=== PATIENT | male | born 1955 | race Caucasian/White ===

== ENCOUNTER 2021-08-01 14:54 | Inpatient (IN) ==
--- NOTE | 2021-08-01 15:30 | Emergency Department Note ---
Skin/Abscess/FB HPI <Vazquez Pierce PA-C - Last Filed: 08/01/21 20:48> General Chief complaint: Skin/Abscess/Rash Stated complaint: Left Leg Cellulitis Time Seen by Provider: 08/01/21 14:55 Source: patient Mode of arrival: ambulatory Limitations: no limitations History of Present Illness HPI Narrative: Narrative: 65-year-old male with a history of chronic idiopathic thrombocytopenia, hype rtension and history of endocarditis presents the ER to be evaluated for cellulitis of his left lower extremity. He has had Rocephin, Keflex and doxycycline which he has failed outpatient. He had a log hit his ross on 23 July and noticed a little bit redness and irritation that blossomed. He was seen in the urgent care on the and then by his primary care provider on the . He received Rocephin and Keflex from the urgent care. His primary care took him off Keflex and started him on doxycycline. It has been increasing in redness and pain since then. He had an outpatient ultrasound which showed no DVT but did show a significant fluid-filled pocket on his anterior ross which was 5 cm in diameter which is likely a hematoma according to the radiologist. The patient denies fever, shaking chills, nausea, vomiting, chest pain, chest pressure, shortness of breath or numbness or tingling in his foot. He states he is able to ambulate on it although is painful. And he does have normal sensation throughout both lower extremities. The only medication he takes is lisinopril for his blood pressure and Ambien as a sleep aid. He denies any other acute complaints at this time. Patient had recent inguinal hernia repair in April performed by Dr. Billy he ended up needing to receive platelets due to bleeding because of his thrombocytopenia. Patient is still an active smoker. Related Data Home Medications Medication Instructions Recorded Confirmed ascorbic acid (vitamin C) 1,000 mg 1,000 mg PO QAM 03/27/21 08/01/21 tablet lisinopril 20 mg tablet 20 mg PO QAM 03/27/21 08/01/21 melatonin 10 mg capsule 10 mg PO HS 03/27/21 08/01/21 Previous Rx's Medication Instructions Recorded doxycycline hyclate 100 mg capsule 100 mg PO BID #20 cap 07/28/21 oxycodone-acetaminophen 10 mg-325 1 tab PO TID PRN #30 tab 07/28/21 mg tablet zolpidem 10 mg tablet 10 mg PO QHS #30 tab 07/28/21 Allergies Allergy/AdvReac Type Severity Reaction Status Date / Time No Known Drug Allergies Allergy Verified 07/28/21 14:31 Review of Systems <Vazquez Pierce PA-C - Last Filed: 08/01/21 20:48> ROS ROS Narrative: Narrative: All systems ED: reviewed and negative except as stated. PFSH <Vazquez Pierce PA-C - Last Filed: 08/01/21 20:48> Narrative Patient History Narrative: Narrative: Medical/Surgical/Family History All Active Problems (Updated 08/01/21 @ 18:16 by Shantal Billy MD) Cellulitis of left lower extremity (Acute) Hematoma of left lower extremity (Acute) Cellulitis (Acute) Cellulitis (Acute) HIV screening declined (Acute) Screening for hepatitis C declined (Acute) Screening for malignant neoplasm of prostate (Acute) Encounter for colorectal cancer screening (Acute) Medicare welcome visit (Acute) Incarcerated right inguinal hernia (Acute) Insomnia (Acute) Tobacco use disorder, mild, abuse (Acute) Right inguinal hernia (Acute) Endocarditis (Chronic) Right inguinal hernia (Chronic) Chronic idiopathic thrombocytopenia (Chronic) Hypertension (Chronic) Medical History Cellulitis Chronic idiopathic thrombocytopenia Encounter for colorectal cancer screening Endocarditis HIV screening declined Hypertension Insomnia Medicare welcome visit Right inguinal hernia Right inguinal hernia Screening for hepatitis C declined Screening for malignant neoplasm of prostate Tobacco use disorder, mild, abuse Surgical History History of foot surgery Left Plantar Neurectomy History of right inguinal hernia repair 04/02/2021 History of total cystectomy Right Wrist Ganglion Family History Other Breast cancer COPD (chronic obstructive pulmonary disease) Hypertension Prostate cancer Throat cancer Social History Smoking Status: Current every day smoker Alcohol Intake Frequency: does not drink Substance Use: marijuana Exam <Vazquez Pierce PA-C - Last Filed: 08/01/21 20:48> Narrative Narrative: Narrative: Gen: No acute distress CVS: +S1/S2, No murmurs or gallops. Radial pulses 2+ and equal bilat. No swelling RESP: Unlabored respiratory effort . Clear to auscultation bilaterally (CTAB). No noted wheezes rales or ronchi. GI: Nontender/Nondistended (NTND), No focal tenderness MSK: Diffuse erythema and swelling of the left lower extremity, when visualized on ultrasound there is a large 5 cm hematoma pocket on the anterior ross. There is no exudate or drainage or evidence of purulence. There is a minor scab on his anterior ross from where he collided with a log. Cap refill is less than 2, normal sensation throughout the lower extremity, no evidence of compartment syndrome. DP is palpable through the edema. Skin: Warm, Dry . No rashes or lesions . Cap refill less than 2. Psych: Awake, Alert, & Oriented (AAO) x3. Appropriate mood and affect . General Limitations: no limitations Course <Vazquez Pierce PA-C - Last Filed: 08/01/21 20:48> Vital Signs Vital signs: Vital Signs Temperature 97.7 F 08/01/21 14:55 Pulse Rate 75 08/01/21 14:55 Respiratory Rate 18 08/01/21 14:55 Blood Pressure 119/76 08/01/21 14:55 Pulse Oximetry (%) 99 08/01/21 14:55 Temperature 98.1 F 08/02/21 11:16 Pulse Rate 79 08/02/21 11:16 Respiratory Rate 18 08/02/21 11:16 Blood Pressure 99/63 08/02/21 11:16 Pulse Oximetry (%) 97 08/02/21 11:16 MDM <Vazquez Pierce PA-C - Last Filed: 08/01/21 20:48> MDM Narrative Medical decision making narrative: Narrative: Patient has history of thrombocytopenia and bleeding secondary to surgery. He had a recent inguinal repair where he needed a transfusion of platelets. He does have significant cellulitis. His lactate is 1. He is afebrile and has normal vital signs. Blood cultures will be obtained as well as a CBC, CMP. Dr. Sahu was consulted but he is out of town until Wednesday. Dr Billy General Surgeon will be consulted. CBC: Platelet count 64 otherwise unremarkable CMP: Creatinine of 1.3 otherwise unremarkable Blood cultures: Pending Dr Billy: Admit to to him, start of vanomycin and zosyn start pain protocol Dr. Billy will be in to see the patient. He was started on morphine as well as vancomycin and Zosyn. He will be admitted and evaluated further. Lab Data Result diagrams: 08/01/21 15:14 08/01/21 15:14 Labs: Lab Results 08/01/21 08/01/21 Range/Units 15:14 15:14 WBC 9.9 (4.5-11.0) K/mcL RBC 4.94 (4.63-6.08) M/mcL Hgb 14.5 (13.7-17.5) g/dL Hct 42.6 (40.1-51.0) % MCV 86.2 (80.0-100.0) fL MCH 29.4 (26.0-34.0) pg MCHC 34.0 (31.0-36.0) g/dL RDW 12.7 (11.5-14.5) % Plt Count 64 L (140-440) K/mcL MPV 10.7 H (7.4-10.4) fL Neut % (Auto) 70.6 (38.0-78.0) % Lymph % (Auto) 14.5 L (15.5-49.0) % [place] % (Auto) 8.6 (1.0-12.0) % Eos % (Auto) 5.3 (0.0-7.0) % Baso % (Auto) 1.0 (0.0-2.0) % Lymph # (Auto) 1.43 L (1.50-4.80) K/mcL [place] # (Auto) 0.85 (0.10-0.90) K/mcL Eos # (Auto) 0.52 (0.00-0.70) K/mcL Baso # (Auto) 0.10 (0.00-0.30) K/mcL Absolute Neutrophils 6.98 (1.80-8.00) K/mcL Sodium 134 (133-145) mmol/L Potassium 4.5 (3.3-5.1) mmol/L Chloride 99 (96-108) mmol/L Carbon Dioxide 25 (22-30) mmol/L Anion Gap 10.0 (8.0-16.0) BUN 23 (8-23) mg/dL Creatinine 1.3 H (0.7-1.2) mg/dL GFR Calculation 57 Glucose 91 (70-105) mg/dL Calcium 8.6 (8.6-10.4) mg/dL Total Bilirubin 0.5 (0.1-1.0) mg/dL AST 15 (<40) U/L ALT 8 (<40) U/L Alkaline Phosphatase 66 (39-117) U/L Total Protein 6.9 (5.9-8.4) gm/dL Albumin 3.7 (3.2-5.2) gm/dL Globulin 3.2 (2.2-3.7) gm/dL Albumin/Globulin Ratio 1.2 (1.0-2.3) ED POC Tests ED POC Tests: [place] - SARS Antigen Negative Discharge Plan Patient/Caregiver Discharge Instructions Pt seen by PACKAGE LIFT OPERATOR/PA only: Yes Clinical Impression: Cellulitis Qualifiers: Site of cellulitis: extremity Site of cellulitis of extremity: lower extremity Laterality: left Qualified Code(s): L03.116 - Cellulitis of left lower limb Patient Disposition: Xfer As Inpt ([facility]) Discharge Date/Time: 08/01/21 17:51 Discharge Location: [facility]
[2021-08-01] MEDS ORDERED: PIPERACILLIN SODIUM/TAZOBACTAM 4.5 GM in DEXTROSE 5% IN WATER 50 ML IV ONE (15:46)
[2021-08-01] MEDS ORDERED: VANCOMYCIN PER PHARMACY IV ONE (15:46)
[2021-08-01] MEDS ORDERED: morphine 4 MG/ML VIAL IV PRN ×2 (15:46→17:14)
[2021-08-01 15:51] LABS: Eosinophils # (Auto) 0.52 K/mcL (0.00-0.70); Eosinophils % (Auto) 5.3 % (0.0-7.0); Hematocrit 42.6 % (40.1-51.0); Hemoglobin 14.5 g/dL (13.7-17.5); Lymphocytes # (Auto) 1.43 K/mcL (1.50-4.80); Lymphocytes % (Auto) 14.5 % (15.5-49.0); Mean Cell Volume 86.2 fL (80.0-100.0); Mean Platelet Volume 10.7 fL (7.4-10.4); Monocytes # (Auto) 0.85 K/mcL (0.10-0.90); Monocytes % (Auto) 8.6 % (1.0-12.0); Neutrophils % (Auto) 70.6 % (38.0-78.0); Platelet Count 64 K/mcL (140-440); RBC 4.94 M/mcL (4.63-6.08); Red Cell Distribution Width 12.7 % (11.5-14.5); WBC 9.9 K/mcL (4.5-11.0)
[2021-08-01] MEDS ORDERED: VANCOMYCIN 1,500 MG in 0.9 % SODIUM CHLORIDE 500 ML IV ONE (16:00)
[2021-08-01 16:11] LABS: ALT/SGPT 8 U/L (<40); AST/SGOT 15 U/L (<40); Albumin 3.7 gm/dL (3.2-5.2); Albumin/Globulin Ratio 1.2 (1.0-2.3); Alkaline Phosphatase 66 U/L (39-117); Bilirubin,Total 0.5 mg/dL (0.1-1.0); Blood Urea Nitrogen 23 mg/dL (8-23); Calcium 8.6 mg/dL (8.6-10.4); Carbon Dioxide 25 mmol/L (22-30); Chloride 99 mmol/L (96-108); Globulin 3.2 gm/dL (2.2-3.7); Glomerular Filtration Rate 57; Glucose 91 mg/dL (70-105)
[2021-08-01] MEDS ORDERED: ACETAMINOPHEN 325 MG TABLET PO PRN (17:14)
[2021-08-01] MEDS ORDERED: ONDANSETRON 4 MG/2 ML VIAL IV PRN (17:14)
--- NOTE | 2021-08-01 17:47 | General Surg History&Physical ---
HPI History of Present Illness Patient information: Note initiated : 08/01/21 at 5:45 pm Service Date, if different from initiated Date: [] Patient: Mo Hickman 65 y/o M admitted on for Left Leg Cellulitis. Chief Complaint: [] Chief complaint: Infected hematoma with cellulitis History of present illness: Mr. Hickman is a 65 year old MWho sustained an injury to his left leg on 23 July 2021. He was lifting wood and one of the logs fell on his left mid ross. Initially he had a bruise and superficial abrasion. It increased in size and developed more redness so he was seen in urgent care on 26 July 2021. They ga ve him Rocephin and started him on Keflex. He followed up with his primary physician on 28 July who switched to Keflex to doxycycline. He had an ultrasound which ruled out DVT and showed a suspected superficial hematoma in the deep subcutaneous tissue. The patient states that over the past 4 days the redness and swelling has increased though he has not had pain. He is seen in the emergency room where he has an obvious fluctuant mass of the anterior ross with surrounding cellulitis and some resolving ecchymoses. He also has edema of his foot. Patient is admitted and will be started on antibiotics IV. I will aspirate the mass tomorrow and get cultures. Antibiotics will be continued IV until cultures return. It is highly possible that the increased size of the swelling is liquefied hematoma which is made worse by the fact that he has chronic thrombocytopenia. Constitutional Constitutional: Present chills; Absent lethargy, malaise or night sweats EENT Eyes: Absent loss of vision Ears: Absent decreased hearing Nose, mouth and throat: Absent abnormal hearing, headache(s), neck mass, sore throat or throat swelling Cardiovascular Cardiovascular: Present leg edema and pedal edema; Absent chest pain with activity, claudication, dyspnea on exertion, palpatations, rapid heart rate or syncope Respiratory Respiratory: Absent cough or dyspnea on exertion Gastrointestinal Gastrointestinal: Absent abdominal pain, cramping, loose stools or melena Genitourinary Genitourinary: nocturia, urinary frequency and urinary urgency Musculoskeletal Musculoskeletal: Present abnormal gait, joint swelling, myalgias and radiating pain into limb Integumentary Integumentary: Present erythema, swelling and unusual bruising Neurological Neurological: Absent dizziness, memory loss, restless legs or syncope Psychiatric Psychiatric: Absent depression or mood swings Hematologic/Lymphatic Hematologic/Lymphatic: Present easy bleeding and easy bruising; Absent lymphadenopathy Allergic/Immunologic Allergic/Immunologic: Absent tongue swelling, throat swelling, uticaria, wheezing or lip swelling PFSH PFSH All Active Problems (Updated 08/01/21 @ 18:16 by Shantal Billy MD) Cellulitis of left lower extremity (Acute) Hematoma of left lower extremity (Acute) Cellulitis (Acute) Cellulitis (Acute) HIV screening declined (Acute) Screening for hepatitis C declined (Acute) Screening for malignant neoplasm of prostate (Acute) Encounter for colorectal cancer screening (Acute) Medicare welcome visit (Acute) Incarcerated right inguinal hernia (Acute) Insomnia (Acute) Tobacco use disorder, mild, abuse (Acute) Right inguinal hernia (Acute) Endocarditis (Chronic) Right inguinal hernia (Chronic) Chronic idiopathic thrombocytopenia (Chronic) Hypertension (Chronic) Medical History Cellulitis Chronic idiopathic thrombocytopenia Encounter for colorectal cancer screening Endocarditis HIV screening declined Hypertension Insomnia Medicare welcome visit Right inguinal hernia Right inguinal hernia Screening for hepatitis C declined Screening for malignant neoplasm of prostate Tobacco use disorder, mild, abuse Surgical History History of foot surgery Left Plantar Neurectomy History of right inguinal hernia repair 04/02/2021 History of total cystectomy Right Wrist Ganglion Family History Other Breast cancer COPD (chronic obstructive pulmonary disease) Hypertension Prostate cancer Throat cancer Social History marital status: occupational status: retired smoking status: Current every day smoker alcohol intake frequency: does not drink substance use type: marijuana MEDS/ALLERGIES Home Medications and Allergies Home Medications Medication Instructions Recorded Confirmed Type ascorbic acid (vitamin C) 1,000 mg 1,000 mg PO QAM 03/27/21 07/28/21 History tablet lisinopril 20 mg tablet 20 mg PO QAM 03/27/21 07/28/21 History melatonin 10 mg capsule 10 mg PO HS 03/27/21 07/28/21 History turmeric 400 mg capsule 400 mg PO QAM 03/27/21 07/28/21 History doxycycline hyclate 100 mg capsule 100 mg PO BID #20 cap 07/28/21 07/28/21 Rx oxycodone-acetaminophen 10 mg-325 1 tab PO TID PRN #30 tab 07/28/21 07/28/21 Rx mg tablet zolpidem 10 mg tablet 10 mg PO QHS #30 tab 07/28/21 07/28/21 Rx Allergies Allergy/AdvReac Type Severity Reaction Status Date / Time No Known Drug Allergies Allergy Verified 07/28/21 14:31 Physical Examination Vital Signs Vital signs: Temp Pulse Resp BP Pulse Ox 97.7 F 67 16 105/68 96 08/01/21 14:55 08/01/21 17:30 08/01/21 17:00 08/01/21 17:30 08/01/21 17:30 General physical appearance General physical exam: well developed, well nourished, no distress and moderate pain (Left lower extremity) Eyes Eye exam: PERRL and normal ocular movement ENT ENT exam: normal mucosa, no hearing loss and no congestion Head Head exam IM: Present atraumatic, normal inspection and normocephalic Neck Neck exam: no masses, no bruits, trachea midline, no lymphadenopathy and no venous distension Cardiovascular Cardiovascular exam IM: Present normal rate and rhythm, RRR, +S1 and +S2; Absent JVD Respiratory Respiratory exam: normal expansion, normal respiratory effort and clear to auscultation Abdomen Abdomen: Present soft, non tender and bowel sounds; Absent organomegaly or guarding Integumentary Integumentary: Present no rash, no growths, no abnormal pigmentation and other (Fluctuant, mildly tender, erythematous bulbous lesion anterior mid ross with surrounding cellulitis extending down to the ankle. 3+ nonpitting edema of the leg below the knee extending to the foot) Neurologic Neurologic: Present normal coordination and normal sensation Musculoskeletal Musculoskeletal: Present normal gait and normal posture Psychiatric Psychiatric: Present oriented to time, oriented to person, oriented to place, speech is normal and memory intact Results Labs Result diagrams: 08/01/21 15:14 08/01/21 15:14 Labs: Abnormal lab results 08/01/21 08/01/21 Range/Units 15:14 15:14 Plt Count 64 L (140-440) K/mcL MPV 10.7 H (7.4-10.4) fL Lymph % (Auto) 14.5 L (15.5-49.0) % Lymph # (Auto) 1.43 L (1.50-4.80) K/mcL Creatinine 1.3 H (0.7-1.2) mg/dL Diabetes panel 08/01/21 Range/Units 15:14 Sodium 134 (133-145) mmol/L Potassium 4.5 (3.3-5.1) mmol/L Chloride 99 (96-108) mmol/L Carbon Dioxide 25 (22-30) mmol/L BUN 23 (8-23) mg/dL Creatinine 1.3 H (0.7-1.2) mg/dL Glucose 91 (70-105) mg/dL Calcium 8.6 (8.6-10.4) mg/dL AST 15 (<40) U/L ALT 8 (<40) U/L Alkaline Phosphatase 66 (39-117) U/L Total Protein 6.9 (5.9-8.4) gm/dL Albumin 3.7 (3.2-5.2) gm/dL Calcium panel 08/01/21 Range/Units 15:14 Calcium 8.6 (8.6-10.4) mg/dL Albumin 3.7 (3.2-5.2) gm/dL Pituitary panel 08/01/21 Range/Units 15:14 Sodium 134 (133-145) mmol/L Potassium 4.5 (3.3-5.1) mmol/L Chloride 99 (96-108) mmol/L Carbon Dioxide 25 (22-30) mmol/L BUN 23 (8-23) mg/dL Creatinine 1.3 H (0.7-1.2) mg/dL Glucose 91 (70-105) mg/dL Calcium 8.6 (8.6-10.4) mg/dL Adrenal panel 08/01/21 Range/Units 15:14 Sodium 134 (133-145) mmol/L Potassium 4.5 (3.3-5.1) mmol/L Chloride 99 (96-108) mmol/L Carbon Dioxide 25 (22-30) mmol/L BUN 23 (8-23) mg/dL Creatinine 1.3 H (0.7-1.2) mg/dL Glucose 91 (70-105) mg/dL Calcium 8.6 (8.6-10.4) mg/dL Total Bilirubin 0.5 (0.1-1.0) mg/dL AST 15 (<40) U/L ALT 8 (<40) U/L Alkaline Phosphatase 66 (39-117) U/L Total Protein 6.9 (5.9-8.4) gm/dL Albumin 3.7 (3.2-5.2) gm/dL All other labs normal. A/P Assessment and plan (1) Hematoma of left lower extremity: Status: Acute (2) Cellulitis of left lower extremity: Status: Acute (3) Chronic idiopathic thrombocytopenia: Status: Chronic (4) Hypertension: Status: Chronic Narrative A/P Narrative: Zosyn 3.375 g IV every 6 hours elevate left lower extremity Aspirate hematoma tomorrow with cultures Vancomycin 1 g IV every 12 hours Zosyn Time Spent With Patient Time: Total time spent is greater than 50% in coordination of care (as documented) at patient's floor/unit and/or counseling patient:
[2021-08-01] MEDS ORDERED: oxyCODONE HCL 5 MG TABLET PO PRN (18:20)
[2021-08-01] MEDS: 0.9 % SODIUM CHLORIDE 10 ML SYRINGE IV SCH (20:23)
[2021-08-01] MEDS: SENNOSIDES 1 TABLET PO SCH (20:23)
[2021-08-01] MEDS: DOCUSATE SODIUM 100 MG CAPSULE PO SCH (20:23)
[2021-08-02] MEDS: 0.9 % SODIUM CHLORIDE 10 ML SYRINGE IV SCH ×3 (04:04→20:19)
[2021-08-02] MEDS: DOCUSATE SODIUM 100 MG CAPSULE PO SCH ×2 (09:39→20:20)
[2021-08-02] MEDS ORDERED: VANCOMYCIN PER PHARMACY IV SCH (14:20)
[2021-08-02] MEDS ORDERED: VANCOMYCIN 1,000 MG in 0.9 % SODIUM CHLORIDE 250 ML IV SCH (14:30)
--- NOTE | 2021-08-02 14:39 | General Surgery Progress Note ---
SUBJECTIVE Subjective Patient information: Note initiated : 08/02/21 at 2:38 pm Service Date, if different from initiated Date: [] Patient: Mo Hickman 65 y/o M admitted on 08/01/21 for Left Leg Cellulitis. Chief Complaint: [] Principal diagnosis: hematoma with cellulitis Interval history: Patient has swelling and increased cellulitis of the hematoma of the left leg. The edema of the lower leg and foot appears to be worse. The area is still soft and fluctuant and I discussed the need for an attempt at aspiration. He gives his informed consent. Constitutional Vitals: Vital Signs Temp Pulse Resp BP Pulse Ox 98.1 F 79 18 99/63 97 08/02/21 11:16 08/02/21 11:16 08/02/21 11:16 08/02/21 11:16 08/02/21 11:16 Period Temp Pulse Resp BP Sys/Duke Pulse Ox Last 24 Hr 97.3 F-98.3 F 62-79 16-18 92-120/63-82 95-99 Intake and Output 08/02/21 08/02/21 08/02/21 05:59 13:59 21:59 Intake Total 350 500 Output Total 1225 Balance -875 500 Weight 241 lb 1.6 oz Patient Weight 08/03/21 05:59 Weight 241 lb 1.6 oz Intake & Output: Intake & Output 08/02/21 08/02/21 08/02/21 05:59 13:59 21:59 Intake Total 350 500 Output Total 1225 Balance -875 500 Weight 241 lb 1.6 oz Intake: IV 500 Vancomycin 1,500 mg In Sodium 500 Chloride 0.9% 500 ml @ 333.3 mls/hr IV ONCE ONE Rx#: [id number] Oral 350 Output: Void Amount 1225 Other: Meal Lunch Percent of Meal Consumed 100% Feeding Ability Independent Urine Appearance Clear Urine Color Bright Yellow Neck Neck exam: Present full ROM and normal inspection Respiratory Respiratory exam: Present normal respiratory exam and CTAB Cardiovascular Cardiovascular exam: Present normal rate and rhythm, RRR, +S1 and +S2 GI/Abdominal GI/Abdominal exam: Present normal bowel sounds, soft and mass; Absent distended or tenderness Extremities Exam Extremities exam: Present calf tenderness, tenderness (Diffuse tenderness and swelling of anterior mid calf level. Cellulitis is much worse than at the time of admission.) and neurovascular intact Neurological Exam Neurological exam: Absent motor sensory deficit Psychiatric Psychiatric exam: Present normal affect and normal mood A/P Assessment and plan (1) Hematoma of left lower extremity: Status: Acute (2) Cellulitis of left lower extremity: Status: Acute (3) Chronic idiopathic thrombocytopenia: Status: Chronic Narrative A/P Narrative: The left leg was prepped and draped with ChloraPrep. The anterior aspect of the mass was initially punctured with an 18-gauge needle. Only a small amount of liquefied blood was removed. Another area was anesthetized and a 16-gauge needle was inserted. I was able to remove probably 20 cc of hematoma. Dressing was placed because of continued bleeding. Will reevaluate tomorrow and make decision about open drainage under anesthesia if his inflammation has not improved. Time Spent With Patient Time: Total time spent is greater than 50% in coordination of care (as documented) at patient's floor/unit and/or counseling patient:
[2021-08-02] MEDS: PIPERACILLIN SODIUM/TAZOBACTAM 3.375 GM in DEXTROSE 5% IN WATER 50 ML IV SCH ×2 (15:36→20:19)
[2021-08-02] MEDS: VANCOMYCIN 1,500 MG in 0.9 % SODIUM CHLORIDE 500 ML IV SCH ×2 (16:19→23:47)
[2021-08-02] MEDS: SENNOSIDES 1 TABLET PO SCH (20:20)
[2021-08-03] MEDS: 0.9 % SODIUM CHLORIDE 10 ML SYRINGE IV SCH ×3 (05:48→23:27)
[2021-08-03] MEDS: PIPERACILLIN SODIUM/TAZOBACTAM 3.375 GM in DEXTROSE 5% IN WATER 50 ML IV SCH ×4 (05:48→23:27)
--- NOTE | 2021-08-03 08:33 | General Surgery Progress Note ---
SUBJECTIVE Subjective Patient information: Note initiated : 08/03/21 at 8:30 am Service Date, if different from initiated Date: [] Patient: Mo Hickman 65 y/o M admitted on 08/01/21 for Left Leg Cellulitis. Chief Complaint: [] Interval history: Patient has not had any significant improvement in the inflammatory mass of his left leg. It actually appears to be well larger and more erythematous. He is counseled for drainage of the infected hematoma under MAC later today. Constitutional Vitals: Vital Signs Temp Pulse Resp BP Pulse Ox 97.9 F 66 18 115/76 96 08/03/21 07:44 08/03/21 07:44 08/03/21 07:44 08/03/21 07:44 08/03/21 07:44 Period Temp Pulse Resp BP Sys/Duke Pulse Ox Last 24 Hr 97.7 F-98.7 F 66-79 16-18 99-115/63-76 96-98 Intake and Output 08/02/21 08/03/21 08/03/21 21:59 05:59 13:59 Intake Total 600 960 50 Output Total 625 725 Balance -25 235 50 Weight 239 lb 4.8 oz Intake & Output: Intake & Output 08/02/21 08/03/21 08/03/21 21:59 05:59 13:59 Intake Total 600 960 50 Output Total 625 725 Balance -25 235 50 Weight 239 lb 4.8 oz Intake: IV 600 500 50 Zosyn 3.375 gm In Dextrose 5% 100 50 in Water 50 ml @ 100 mls/hr IV Q6H CHARAN Rx#:[id number] Vancomycin 1,500 mg In Sodium 500 500 Chloride 0.9% 500 ml @ 333.3 mls/hr IV Q12H CHARAN Rx#: [id number] Oral 460 Output: Void Amount 625 725 Other: Urine Appearance Clear Clear Urine Color Bright Yellow Bright Yellow Stool Size Large Stool Color Brown # Bowel Movements 1 A/P Time Spent With Patient Time: Total time spent is greater than 50% in coordination of care (as documented) at patient's floor/unit and/or counseling patient:
[2021-08-03 08:58] LABS: Basophils # (Auto) 0.09 K/mcL (0.00-0.30); Eosinophils # (Auto) 0.38 K/mcL (0.00-0.70); Eosinophils % (Auto) 4.1 % (0.0-7.0); Hematocrit 42.2 % (40.1-51.0); Hemoglobin 14.3 g/dL (13.7-17.5); Lymphocytes # (Auto) 0.78 K/mcL (1.50-4.80); Lymphocytes % (Auto) 8.5 % (15.5-49.0); Mean Cell Volume 85.1 fL (80.0-100.0); Mean Corpuscular HGB Conc 33.9 g/dL (31.0-36.0); Mean Platelet Volume 10.2 fL (7.4-10.4); Monocytes # (Auto) 0.65 K/mcL (0.10-0.90); Monocytes % (Auto) 7.1 % (1.0-12.0); Neutrophils % (Auto) 79.3 % (38.0-78.0); Platelet Count 71 K/mcL (140-440); RBC 4.96 M/mcL (4.63-6.08); Red Cell Distribution Width 12.5 % (11.5-14.5); WBC 9.2 K/mcL (4.5-11.0)
[2021-08-03] MEDS: DOCUSATE SODIUM 100 MG CAPSULE PO SCH ×2 (09:15→20:32)
[2021-08-03] MEDS: VANCOMYCIN 1,500 MG in 0.9 % SODIUM CHLORIDE 500 ML IV SCH ×2 (10:04→10:06)
[2021-08-03] MEDS ORDERED: fentaNYL 100 MCG/2 ML VIAL IV PRN (10:19)
[2021-08-03] MEDS ORDERED: BENZOCAINE/MENTHOL 1 LOZENGE PO PRN (10:19)
[2021-08-03] MEDS ORDERED: HYDROmorphone 0.5 MG/0.5 ML SYRINGE IV PRN (10:19)
[2021-08-03] MEDS ORDERED: NALOXONE HCL 0.4 MG/ML VIAL IV PRN (10:19)
[2021-08-03] MEDS ORDERED: LACTATED RINGERS 250 ML IV PRN (10:19)
[2021-08-03] MEDS ORDERED: METHOCARBAMOL 1,000 MG/10 ML VIAL IV PRN (10:19)
[2021-08-03] MEDS ORDERED: METOPROLOL TARTRATE 5 MG/5 ML VIAL IV PRN (10:19)
[2021-08-03] MEDS ORDERED: IPRATROPIUM/ALBUTEROL 3 ML AMPUL.NEB NEB PRN (10:19)
[2021-08-03] MEDS ORDERED: LABETALOL 5 MG/ML ML IV PRN (10:19)
[2021-08-03] MEDS ORDERED: ACETAMINOPHEN 1,000 MG/100 ML BAG IV ONE (10:19)
[2021-08-03] MEDS ORDERED: FLUMAZENIL 0.1 MG/ML ML IV PRN (10:19)
[2021-08-03] MEDS ORDERED: LACTATED RINGERS 1,000 ML IV SCH (10:30)
[2021-08-03] MEDS ORDERED: DEXAMETHASONE 10 MG/ML VIAL ONE (10:32)
[2021-08-03] MEDS ORDERED: KETAMINE 50 MG/ML Syringe (ANEST) IV ONE (10:32)
[2021-08-03] MEDS ORDERED: PROPOFOL 200 MG/20 ML VIAL IV ONE (10:32)
[2021-08-03] MEDS ORDERED: ONDANSETRON 4 MG/2 ML VIAL ONE (10:32)
[2021-08-03] MEDS ORDERED: MIDAZOLAM 2 MG/2 ML VIAL ONE (10:32)
[2021-08-03] MEDS ORDERED: GLYCOPYRROLATE 0.2 MG/ML VIAL IV ONE (10:32)
[2021-08-03] MEDS ORDERED: METOCLOPRAMIDE 10 MG/2 ML VIAL ONE (10:32)
[2021-08-03] MEDS ORDERED: LIDOCAINE HCL/PF 100 MG/5 ML SYRINGE IV ONE (10:32)
[2021-08-03] MEDS ORDERED: MAGNESIUM SULFATE 2 GM/50 ML BAG IV ONE (10:32)
--- NOTE | 2021-08-03 11:21 | Brief Operative Note ---
Brief Operative Note Date of procedure: 08/03/21 Pre-op diagnosis: infected hematoma left leg Post-op diagnosis: other (infected hematoma left leg) Procedure: incision,drainage and irrigation of hematoma left leg Grafts/Implants: No Anesthesia: GETA, MAC and local Findings: old purulent blood and clot in deep subcutaneous space Complications: none Surgeon: Shantal Billy Estimated blood loss (cc): 25 Specimens Removed/Pathology: other (cultures ) Condition: stable Disposition: PACU
[2021-08-03] MEDS ORDERED: LIDOCAINE 1% 20 ML VIAL SQ ONE (11:29)
[2021-08-03] MEDS ORDERED: oxyCODONE/APAP 10/325MG TABLET PO PRN (11:59)
[2021-08-03] MEDS ORDERED: 0.9 % SODIUM CHLORIDE 250 ML IV SCH (13:00)
--- NOTE | 2021-08-03 17:50 | EKG ---
[facility] Test Date: 2021-08-03 Pat Name: Mo Hickman Department: [facility] Room: 108 Gender: Male Advertising Director: : 1955 Requested By: Shantal Billy Order Number: [id number] Reading MD: Gallito Pearson Measurements Intervals [place] Rate: 67 P: 16 NE: 153 QRS: 39 QRSD: 102 T: 3 QT: 396 QTc: 418 Interpretive Statements Sinus rhythm Inferior infarct, old Electronically Signed On 08-03-2021 17:50:33 PDT by Gallito Pearson /store/M0/[id number]
[2021-08-03] MEDS: SENNOSIDES 1 TABLET PO SCH (20:32)
[2021-08-03] MEDS: MELATONIN 3 MG TABLET PO SCH (20:32)
[2021-08-03] MEDS: ZOLPIDEM 5 MG TABLET PO SCH (20:32)
[2021-08-04] MEDS: PIPERACILLIN SODIUM/TAZOBACTAM 3.375 GM in DEXTROSE 5% IN WATER 50 ML IV SCH ×4 (05:56→23:41)
[2021-08-04] MEDS: 0.9 % SODIUM CHLORIDE 10 ML SYRINGE IV SCH ×3 (05:56→20:28)
[2021-08-04] MEDS: LISINOPRIL 20 MG TABLET PO SCH (09:00)
[2021-08-04] MEDS: DOCUSATE SODIUM 100 MG CAPSULE PO SCH ×2 (09:00→20:29)
[2021-08-04] MEDS: VANCOMYCIN 1,500 MG in 0.9 % SODIUM CHLORIDE 500 ML IV SCH (09:22)
--- NOTE | 2021-08-04 13:11 | General Surgery Progress Note ---
SUBJECTIVE Subjective Patient information: Note initiated : 08/04/21 at 1:07 pm Service Date, if different from initiated Date: [] Patient: Mo Hickman 65 y/o M admitted on 08/01/21 for Left Leg Cellulitis. Chief Complaint: [] Principal diagnosis: hematoma with cellulitis Interval history: Patient is doing well. He has decreased swelling and edema of his foot and leg. Cultures are negative for growth at this time. Drainage is bloody but decreasing in volume Constitutional Vitals: Vital Signs Temp Pulse Resp BP Pulse Ox 98.2 F 63 16 120/78 97 08/04/21 11:39 08/04/21 11:39 08/04/21 11:39 08/04/21 11:39 08/04/21 11:39 Period Temp Pulse Resp BP Sys/Duke Pulse Ox Last 24 Hr 96.8 F-98.2 F 61-78 14-18 112-122/72-86 95-97 Intake and Output 08/03/21 08/04/21 08/04/21 21:59 05:59 13:59 Intake Total 770 880 600 Output Total 1125 1025 610 Balance -355 -145 -10 Weight 241 lb 4.8 oz Intake & Output: Intake & Output 08/03/21 08/04/21 08/04/21 21:59 05:59 13:59 Intake Total 770 880 600 Output Total 1125 1025 610 Balance -355 -145 -10 Weight 241 lb 4.8 oz Intake: IV 50 50 600 Zosyn 3.375 gm In Dextrose 5% 50 50 100 in Water 50 ml @ 100 mls/hr IV Q6H CHARAN Rx#:[id number] Vancomycin 1,500 mg In Sodium 500 Chloride 0.9% 500 ml @ 333.3 mls/hr IV DAILY CHARAN Rx#: [id number] Oral 720 830 Output: Drainage 10 Left Calf ANNEL Drain 10 Void Amount 1125 1025 600 Other: Meal Lunch Percent of Meal Consumed 75% Urine Appearance Clear Clear Clear Urine Color Dark Yellow Bright Yellow Bright Yellow Respiratory Respiratory exam: Present normal respiratory exam and CTAB Cardiovascular Cardiovascular exam: Present normal rate and rhythm, RRR, +S1 and +S2; Absent JVD GI/Abdominal GI/Abdominal exam: Present normal bowel sounds and soft; Absent distended or tenderness Extremities Exam Additional comments: Edema of the leg is decreased. The cellulitis has improved. He does have more ecchymosis at this time. Leg edema is decreased Neurological Exam Neurological exam: Present alert and oriented X3; Absent motor sensory deficit Psychiatric Psychiatric exam: Present normal affect and normal mood A/P Assessment and plan (1) Cellulitis of left lower extremity: Status: Acute (2) Hematoma of left lower extremity: Status: Acute (3) Hypertension: Status: Chronic Plan Continue present IV therapy with antibiotics Check CBC and inpatient panel in a.m. Time Spent With Patient Time: Total time spent is greater than 50% in coordination of care (as documented) at patient's floor/unit and/or counseling patient:
[2021-08-04] MEDS: MELATONIN 3 MG TABLET PO SCH (20:27)
[2021-08-04] MEDS: ZOLPIDEM 5 MG TABLET PO SCH (20:28)
[2021-08-04] MEDS: SENNOSIDES 1 TABLET PO SCH (20:29)
[2021-08-05] MEDS: PIPERACILLIN SODIUM/TAZOBACTAM 3.375 GM in DEXTROSE 5% IN WATER 50 ML IV SCH ×3 (06:07→18:02)
[2021-08-05] MEDS: 0.9 % SODIUM CHLORIDE 10 ML SYRINGE IV SCH ×3 (06:07→20:15)
[2021-08-05 07:04] LABS: Basophils # (Auto) 0.13 K/mcL (0.00-0.30); Basophils % (Auto) 1.2 % (0.0-2.0); Eosinophils # (Auto) 0.44 K/mcL (0.00-0.70); Hematocrit 38.8 % (40.1-51.0); Lymphocytes # (Auto) 1.29 K/mcL (1.50-4.80); Lymphocytes % (Auto) 11.8 % (15.5-49.0); Mean Cell Volume 84.3 fL (80.0-100.0); Mean Corpuscular HGB Conc 33.5 g/dL (31.0-36.0); Mean Platelet Volume 10.6 fL (7.4-10.4); Monocytes # (Auto) 0.91 K/mcL (0.10-0.90); Monocytes % (Auto) 8.3 % (1.0-12.0); Neutrophils % (Auto) 74.7 % (38.0-78.0); Platelet Count 77 K/mcL (140-440); Red Cell Distribution Width 12.5 % (11.5-14.5); WBC 10.9 K/mcL (4.5-11.0)
[2021-08-05 07:24] LABS: ALT/SGPT 11 U/L (<40); AST/SGOT 13 U/L (<40); Albumin 3.3 gm/dL (3.2-5.2); Albumin/Globulin Ratio 1.3 (1.0-2.3); Alkaline Phosphatase 62 U/L (39-117); Bilirubin,Direct < 0.2 mg/dL (0-0.3); Bilirubin,Total 0.4 mg/dL (0.1-1.0); Blood Urea Nitrogen 17 mg/dL (8-23); Calcium 8.4 mg/dL (8.6-10.4); Carbon Dioxide 23 mmol/L (22-30); Chloride 103 mmol/L (96-108); Globulin 2.6 gm/dL (2.2-3.7); Glomerular Filtration Rate 70; Glucose 91 mg/dL (70-105); Lactate Dehydrogenase 174 U/L (135-225); Phosphorous 3.6 mg/dL (2.5-4.5); Triglycerides 81 mg/dL (<150); Uric Acid 3.6 mg/dL (2.5-8.0)
[2021-08-05] MEDS: VANCOMYCIN 1,500 MG in 0.9 % SODIUM CHLORIDE 500 ML IV SCH (08:57)
[2021-08-05] MEDS: LISINOPRIL 20 MG TABLET PO SCH (08:58)
[2021-08-05] MEDS: DOCUSATE SODIUM 100 MG CAPSULE PO SCH ×2 (08:58→20:14)
--- NOTE | 2021-08-05 13:48 | General Surgery Progress Note ---
SUBJECTIVE Subjective Patient information: Note initiated : 08/05/21 at 1:46 pm Service Date, if different from initiated Date: [] Patient: Mo Hickman 65 y/o M admitted on 08/01/21 for Left Leg Cellulitis. Chief Complaint: [] Principal diagnosis: hematoma with cellulitis Interval history: Patient is doing well. the edema of his leg is significantly improved. Drainage is significantly reduced. Cultures with no growth Constitutional Vitals: Vital Signs Temp Pulse Resp BP Pulse Ox 97.5 F 63 18 121/84 97 08/05/21 12:00 08/05/21 12:00 08/05/21 12:00 08/05/21 07:38 08/05/21 12:00 Period Temp Pulse Resp BP Sys/Duke Pulse Ox Last 24 Hr 97.2 F-97.9 F 60-68 16-20 114-121/73-84 96-97 Intake and Output 08/04/21 08/05/21 08/05/21 21:59 05:59 13:59 Intake Total 50 250 600 Output Total 555 535 450 Balance -505 -285 150 Weight 241 lb 4.8 oz Intake & Output: Intake & Output 08/04/21 08/05/21 08/05/21 21:59 05:59 13:59 Intake Total 50 250 600 Output Total 555 535 450 Balance -505 -285 150 Weight 241 lb 4.8 oz Intake: IV 50 50 600 Zosyn 3.375 gm In Dextrose 5% 50 50 100 in Water 50 ml @ 100 mls/hr IV Q6H CHARAN Rx#:[id number] Vancomycin 1,500 mg In Sodium 500 Chloride 0.9% 500 ml @ 333.3 mls/hr IV DAILY CHARAN Rx#: [id number] Oral 200 Output: Drainage 5 10 Left Calf ANNEL Drain 5 10 Void Amount 550 525 450 Other: Urine Appearance Clear Clear Urine Color Bright Yellow Bright Yellow Urine Odor Normal A/P Assessment and plan (1) Hematoma of left lower extremity: Status: Acute (2) Cellulitis of left lower extremity: Status: Acute Plan Dressing changes carried out Probable discharge tomorrow Time Spent With Patient Time: Total time spent is greater than 50% in coordination of care (as documented) at patient's floor/unit and/or counseling patient:
[2021-08-05] MEDS: ZOLPIDEM 5 MG TABLET PO SCH (20:13)
[2021-08-05] MEDS: MELATONIN 3 MG TABLET PO SCH (20:14)
[2021-08-05] MEDS: SENNOSIDES 1 TABLET PO SCH (20:15)
[2021-08-06] MEDS: PIPERACILLIN SODIUM/TAZOBACTAM 3.375 GM in DEXTROSE 5% IN WATER 50 ML IV SCH ×3 (00:14→12:30)
[2021-08-06] MEDS: 0.9 % SODIUM CHLORIDE 10 ML SYRINGE IV SCH ×2 (06:04→13:45)
[2021-08-06 06:53] LABS: Basophils # (Auto) 0.15 K/mcL (0.00-0.30); Basophils % (Auto) 1.2 % (0.0-2.0); Eosinophils # (Auto) 0.57 K/mcL (0.00-0.70); Eosinophils % (Auto) 4.7 % (0.0-7.0); Hematocrit 39.9 % (40.1-51.0); Hemoglobin 13.5 g/dL (13.7-17.5); Mean Cell Volume 84.5 fL (80.0-100.0); Mean Corpuscular HGB Conc 33.8 g/dL (31.0-36.0); Mean Platelet Volume 10.2 fL (7.4-10.4); Monocytes # (Auto) 0.86 K/mcL (0.10-0.90); Monocytes % (Auto) 7.1 % (1.0-12.0); Platelet Count 81 K/mcL (140-440); RBC 4.72 M/mcL (4.63-6.08); Red Cell Distribution Width 12.5 % (11.5-14.5); WBC 12.1 K/mcL (4.5-11.0)
[2021-08-06] MEDS: DOCUSATE SODIUM 100 MG CAPSULE PO SCH (08:33)
[2021-08-06] MEDS: LISINOPRIL 20 MG TABLET PO SCH (08:34)
[2021-08-06] MEDS: VANCOMYCIN 1,500 MG in 0.9 % SODIUM CHLORIDE 500 ML IV SCH (09:54)
--- NOTE | 2021-08-06 10:11 | Operative Note ---
DATE OF OPERATION: 08/05/2021 PREOPERATIVE DIAGNOSIS: Infected hematoma, left anterolateral leg. POSTOPERATIVE DIAGNOSIS: Infected hematoma, left anterolateral leg. PROCEDURE: Incision with drainage and irrigation of hematoma, left leg. SURGEON: Shantal Billy M.D. FINDINGS: Old, purulent-appearing blood with clot in the deep subcutaneous space. DESCRIPTION OF PROCEDURE: Under general anesthesia, the patient's left leg was prepped and draped in a sterile field. The fluctuant, inflamed hematoma of the anterolateral aspect of the leg at the calf level was incised. Drainage was suctioned. I did not do curettage of the area because the patient has chronic thrombocytopenia. Copious irrigation was carried out. A #7 Amadou drain was placed in the depth of the cavity and brought out through the stab incision. The incision was closed with interrupted 2-0 Prolene and the drain was secured with 2-0 Prolene. Dressing was placed. The patient tolerated the procedure well. He was awakened and transferred to the postanesthetic care unit in stable, satisfactory condition. LCS:gloria Job ID: [id number] Doc ID: [id number] Shantal Billy M.D.
--- NOTE | 2021-08-06 12:12 | Discharge Summary ---
Discharge Provider Provider Patient information: Note initiated : 08/06/21 at 12:09 pm Service Date, if different from initiated Date: [] Patient: Mo Hickman 65 y/o M admitted on 08/01/21 for Left Leg Cellulitis. Chief Complaint: [] Date of admission: 08/01/21 17:51 Discharge date: 08/06/21 Primary care physician: Alvaro Moreno MD Admitting clinician: Shantal Billy Attending physician on admission: Shantal Billy Consults: 08/01/21 Consult to Physician [CONS] Stat Comment: Consulting Provider: Shantal Billy Reason For Exam: Physician to Consult Attending physician on discharge: Shantal Billy Discharging clinician: Shantal Billy COURSE Hospital Course Hospital course: 65-year-old male with history of injury to his left lower leg when a log fell on it causing a major abrasion and swelling. Patient has idiopathic thrombocytopenia and developed a major hematoma which developed surrounding cellulitis over the next 2days. He was started on oral antibiotics but the cellulitis worsened and involved the entire leg with major edema is foot and ankle. He was admitted and started on antibiotics but did not have a significant response. Incision and drainage of the infected hematoma was carried out and a drain was placed. He is now doing well. Most of the inflammation has resolved and the edema has improved significantly. Please stable for discharge home with plans to keep the drain in for another week after which it will be discontinued in the office. He will will be treated with ciprofloxacin for another 10days. Discharge diagnosis: Infected hematoma left lower extremity Secondary discharge diagnosis: Thrombocytopenia idiopathic type Reason for admission: Infected hematoma with cellulitis Procedures: Incision and drainage of infected hematoma left lower extremity Pertinent studies/significant findings: None Complications: None Time Spent with Patient Time attestation: Total time spent providing and/or coordinating discharge services: Physical Examination Vital Signs Vital signs: Temp Pulse Resp BP Pulse Ox 97.6 F 57 L 15 124/77 95 08/06/21 11:05 08/06/21 11:05 08/06/21 11:05 08/06/21 11:05 08/06/21 11:05 Respiratory Respiratory exam: normal expansion, normal respiratory effort and clear to auscultation Abdomen Abdomen: Present soft and non tender; Absent masses Integumentary Integumentary: Present no rash and no growths Neurologic Neurologic: Present normal coordination and normal sensation Musculoskeletal Musculoskeletal: Present normal gait and normal posture Psychiatric Psychiatric: Present oriented to time, oriented to person, oriented to place, speech is normal and memory intact Discharge Plan Patient/Caregiver Discharge Instructions Activity: increase activity as tolerated Diet: Regular Diet Instructions: Cellulitis (DC), Incision and Drainage (DC) Prescriptions: New ciprofloxacin HCl [ciprofloxacin HCl] 500 MG tablet 500 mg PO BID Qty: 20 0RF oxycodone-acetaminophen [Endocet] 10-325 mg Tablet 1 tab PO Q6HP PRN (Reason: Pain) Qty: 20 0RF Continued doxycycline hyclate 100 mg capsule 100 mg PO BID Qty: 20 0RF zolpidem 10 mg tablet 10 mg PO QHS Qty: 30 2RF ascorbic acid (vitamin C) 1,000 mg Tablet 1,000 mg PO QAM 0RF melatonin 10 mg Capsule 10 mg PO HS 0RF lisinopril 20 mg tablet 20 mg PO QAM 0RF Discontinued oxycodone-acetaminophen 10-325 mg tablet 1 tab PO TID PRN (Reason: pain) Qty: 30 0RF Follow Up Plan Follow up with: Alvaro Moreno MD [Primary Care Provider] - Shantal Billy MD [Physician] - (Follow-up in the office in 1 week for drain removal Follow-up in the office 2 weeks post drain removal for final evaluation) Patient Disposition: Home, Self-Care Prognosis: Good Rehab Potential: Good I certify that the patient requires SNF services: No Overall status at discharge: patient is progressing back to baseline Discharge Orders: Discharge Order (Routine); Ordered 08/06/21 Ordered By: Shantal Billy Pending Pending Pending: Resuscitation Status Resuscitate (Full Code) Diet Regular Diet Start WedAug 01 1817 Docusate Sodium (Docusate Sodium 100 Mg Capsule) 100 mg PO BID CHARAN Last Admin: 08/06/21 08:33 Dose: 100 mg Documented by: Cosigned by: Admin: 08/05/21 20:14 Dose: 100 mg Documented by: Admin: 08/05/21 08:58 Dose: 100 mg Documented by: Admin: 08/04/21 20:29 Dose: 100 mg Documented by: Admin: 08/04/21 09:00 Dose: Not Given Documented by: Admin: 08/03/21 20:32 Dose: Not Given Documented by: Admin: 08/03/21 09:15 Dose: Not Given Documented by: Admin: 08/02/21 20:20 Dose: Not Given Documented by: Admin: 08/02/21 09:39 Dose: 100 mg Documented by: Admin: 08/01/21 20:23 Dose: Not Given Documented by: ANDREA Piperacillin Sod/Tazobactam (Sod 3.375 gm/ Dextrose) 50 mls @ 100 mls/hr IV Q6H CHARAN; Protocol Last Infusion: 08/06/21 06:35 Dose: 0 mls/hr Documented by: Admin: 08/06/21 06:04 Dose: 100 mls/hr Documented by: Infusion: 08/06/21 00:50 Dose: 0 mls/hr Documented by: Admin: 08/06/21 00:14 Dose: 100 mls/hr Documented by: Infusion: 08/05/21 18:35 Dose: 0 mls/hr Documented by: Admin: 08/05/21 18:02 Dose: 100 mls/hr Documented by: Infusion: 08/05/21 12:49 Dose: 0 mls/hr Documented by: Admin: 08/05/21 11:57 Dose: 100 mls/hr Documented by: Infusion: 08/05/21 06:39 Dose: 0 mls/hr Documented by: Admin: 08/05/21 06:07 Dose: 100 mls/hr Documented by: Infusion: 08/05/21 00:11 Dose: 100 mls/hr Documented by: Admin: 08/04/21 23:41 Dose: 100 mls/hr Documented by: Infusion: 08/04/21 17:51 Dose: 0 mls/hr Documented by: Admin: 08/04/21 17:16 Dose: 100 mls/hr Documented by: Infusion: 08/04/21 12:15 Dose: 0 mls/hr Documented by: Admin: 08/04/21 11:43 Dose: 100 mls/hr Documented by: Infusion: 08/04/21 06:49 Dose: 0 mls/hr Documented by: Admin: 08/04/21 05:56 Dose: 100 mls/hr Documented by: Infusion: 08/04/21 00:15 Dose: 0 mls/hr Documented by: Admin: 08/03/21 23:27 Dose: 100 mls/hr Documented by: Infusion: 08/03/21 18:10 Dose: 0 mls/hr Documented by: Admin: 08/03/21 17:36 Dose: 100 mls/hr Documented by: Infusion: 08/03/21 12:40 Dose: 0 mls/hr Documented by: Admin: 08/03/21 12:01 Dose: 100 mls/hr Documented by: Infusion: 08/03/21 06:45 Dose: 0 mls/hr Documented by: Admin: 08/03/21 05:48 Dose: 100 mls/hr Documented by: Infusion: 08/02/21 20:50 Dose: 0 mls/hr Documented by: Admin: 08/02/21 20:19 Dose: 100 mls/hr Documented by: Infusion: 08/02/21 16:06 Dose: 100 mls/hr Documented by: [email or web address] Admin: 08/02/21 15:36 Dose: 100 mls/hr Documented by: [id number] Vancomycin HCl 1,500 mg/ (Sodium Chloride) 500 mls @ 333.3 mls/hr IV DAILY CHARAN Last Infusion: 08/06/21 11:25 Dose: 0 mls/hr Documented by: [email or web address] Admin: 08/06/21 09:54 Dose: 333.3 mls/hr Documented by: Infusion: 08/05/21 10:30 Dose: 0 mls/hr Documented by: Admin: 08/05/21 08:57 Dose: 333.3 mls/hr Documented by: Infusion: 08/04/21 11:05 Dose: 0 mls/hr Documented by: Admin: 08/04/21 09:22 Dose: 333.3 mls/hr Documented by: Infusion: 08/03/21 11:45 Dose: 0 mls/hr Documented by: Admin: 08/03/21 10:04 Dose: 333.3 mls/hr Documented by: [email or web address] Lisinopril (Lisinopril 20 Mg Tablet) [facility] [place] Admin: 08/06/21 08:34 Dose: Not Given Documented by: Admin: 08/05/21 08:58 Dose: 20 mg Documented by: Admin: 08/04/21 09:00 Dose: Not Given Documented by: PROMISE Melatonin (Melatonin 3 Mg Tablet) 9 mg PO [facility] Last Admin: 08/05/21 20:14 Dose: 9 mg Documented by: Admin: 08/04/21 20:27 Dose: 9 mg Documented by: Admin: 08/03/21 20:32 Dose: 9 mg Documented by: ANDREA Oxycodone HCl (Oxycodone Hcl 5 Mg Tablet) 10 mg PO Q4HP PRN; Protocol PRN Reason: Per Pain Protocol Last Admin: 08/02/21 15:47 Dose: 10 mg Documented by: [id number] Senna (Sennosides 1 Tablet) 2 tab PO [facility] Last Admin: 08/05/21 20:15 Dose: Not Given Documented by: Admin: 08/04/21 20:29 Dose: Not Given Documented by: Admin: 08/03/21 20:32 Dose: Not Given Documented by: Admin: 08/02/21 20:20 Dose: Not Given Documented by: Admin: 08/01/21 20:23 Dose: Not Given Documented by: ANDREA Sodium Chloride (0.9 % Sodium Chloride 10 Ml Syringe) 10 ml IV Q8 [facility] Last Admin: 08/06/21 06:04 Dose: 10 ml Documented by: Admin: 08/05/21 20:15 Dose: 10 ml Documented by: Admin: 08/05/21 12:01 Dose: 10 ml Documented by: Admin: 08/05/21 06:07 Dose: 10 ml Documented by: Admin: 08/04/21 20:28 Dose: 10 ml Documented by: Admin: 08/04/21 15:53 Dose: 10 ml Documented by: Admin: 08/04/21 05:56 Dose: 10 ml Documented by: Admin: 08/03/21 23:27 Dose: 10 ml Documented by: Admin: 08/03/21 14:15 Dose: 10 ml Documented by: Admin: 08/03/21 05:48 Dose: 10 ml Documented by: Admin: 08/02/21 20:19 Dose: 10 ml Documented by: Admin: 08/02/21 15:55 Dose: 10 ml Documented by: [id number] Admin: 08/02/21 04:04 Dose: 10 ml Documented by: Admin: 08/01/21 20:23 Dose: 10 ml Documented by: ANDREA Zolpidem Tartrate (Zolpidem 5 Mg Tablet) 10 mg PO HS CHARAN Last Admin: 08/05/21 20:13 Dose: 10 mg Documented by: Admin: 08/04/21 20:28 Dose: 10 mg Documented by: Admin: 08/03/21 20:32 Dose: 10 mg Documented by: ANDREA Shift Summary 08/06/21 04:41 Shift Summary by Kelli Valenzuela Primary Diagnosis: Left lower leg cellulitis/hematoma Registration Status: Inpatient Day of Hospitalization: 08/01 Date of Surgery (if applicable): 08/03 I/D of LLE Pertinent Medical Dx/Issue(s): Normally healthy Interventions (wounds, diuresis, etc): Dressing to left lower leg C/D/I Vital Signs with Trends: VSS on RA Neuro/Mental Status: Alert and Oriented x4. Pleasant and cooperative. Meds (abo, pain, BP, etc): IV Vancomycin, and Zosyn Lines/Tubes: IV in R wrist SL and is patent O2, liter flow/saturations: RA Lab/Rad results: Date of last BM: 08/01/21. No BM noted on this shift Elimination (remove Monterroso within 24h if appropriate): Voiding clear yellow urine via urinal Activity: Independent in room Expected date of discharge: Today Discharge Plan (needs, disposition, etc): Return home with ex- Pt reports pain but refuses any pain meds and says that he is tolerating the pain on this shift. Reminded pt that he doesnt want the pain to get out of control. Initialized on 08/06/21 04:41 - END OF NOTE
== END 2021-08-06 14:00 | disposition home or self-care (01) | DRG 605 ==
LOC: ED 14:54 → MEDSUR 17:51
PROVIDERS: ADMIT Family Medicine Adult Medicine; ATTEND Family Medicine Adult Medicine